=== PATIENT | male | born 1950 | race Caucasian/White ===

== ENCOUNTER → 2018-07-11 10:43 | Outpatient (CLI) | payer MEDICARE, OTHER, SELFPAY | DX: R52 Pain, unspecified (principal) ==

== ENCOUNTER → 2018-07-14 10:45 | Outpatient (CLI) | payer MEDICARE, OTHER, SELFPAY ==
--- NOTE | 2018-07-14 10:55 | RAD_ITS ---
STUDY: X-RAY - PELVIS REASON FOR EXAM: Male, 67 years old. Bilateral hip pain TECHNIQUE: Two views of the pelvis were obtained. COMPARISON: Prior study of April 20, 2013 FINDINGS: There is a non-specific bowel gas pattern. Normal visualized soft tissue structures. There are mild sclerotic changes of the left SI joint. Normal visualized bilateral superior and inferior pubic rami. Normal pubic symphysis. Normal ischial tuberosities. There are mild arthritic changes of the right hip. Status post total left hip replacement changes are noted. RAD/Pelvis 1 or 2 Views IMPRESSION: Status post total left hip replacement changes. Mild arthritic changes of the right hip. Mild degenerative changes of the left SI joint. There is no evidence of acute fracture or lytic or blastic osseous process. Electronically Signed: Chi Mcnair MD at 21:51 EDT , Service support ,
== END ==
DX: M16.0 Bilateral primary osteoarthritis of hip (principal)
CPT/HCPCS: 72170

== ENCOUNTER → 2018-10-28 06:21 | Outpatient (CLI) | payer MEDICARE, OTHER, SELFPAY ==
--- NOTE | 2018-10-28 06:32 | MRI_ITS ---
STUDY: MRI RIGHT HIP REASON FOR EXAM: Pain for 5 months, osteoarthritis. TECHNIQUE: Standardized fat and water weighted pulse sequences were obtained in all 3 orthogonal planes. COMPARISON: Radiograph 07/14/2018. FINDINGS: There is right hip arthrosis with chondral loss (proton density sagittal image 19), mild flattening of the superior femoral head (T1 coronal images 15, 16) and bone edema of the acetabulum and femoral head/neck (inversion recovery coronal images 15, 16). There is a joint effusion with synovitis (proton density sagittal images 16, 17). There is diffuse tear/degeneration of the superior and anterosuperior labrum (inversion recovery coronal images 13-18; proton density sagittal images 19-21). Normal gluteus minimus, medius and iliopsoas tendons and distal insertions. There is no trochanteric, iliopsoas or iliopectineal bursitis. Normal superior and inferior pubic rami. Normal pubic symphysis. Normal ischial tuberosity. Normal origin of the hamstring tendons. Normal visualized iliac wing, sacroiliac joint, and sacral ala. There is enlargement of the prostate (T1 coronal image 15). MRI/Lower Ext Joint Only (Routine) IMPRESSION: Advanced right hip arthrosis with associated bone edema and flattening of the right femoral head. Tear/degeneration of the labrum. Joint effusion with synovitis. Electronically Signed: Hasmukh Collazo MD at 9:10 EDT Tel , Service support ,
== END ==
PROVIDERS: Family Provider Family Medicine; PCP Family Medicine
DX: M16.11 Unilateral primary osteoarthritis, right hip (principal)
CPT/HCPCS: 73721

== ENCOUNTER → 2018-11-19 08:49 | Outpatient (CLI) | payer MEDICARE, OTHER, SELFPAY ==
--- NOTE | 2018-11-19 08:59 | BD_ITS ---
STUDY: DUAL ENERGY X-RAY ABSORPTIOMETRY / DXA REASON FOR EXAM: Male, 68 years old. Loss of height. TECHNIQUE: Bone Mineral Density (BMD) measurements of lumbar spine and right hip were obtained. COMPARISON: Comparison is made with prior study dated August 28, 2010. FINDINGS: Lumbar Spine (L1-L4): g/cm2 (1.488) / T-score (2.1) / Z-score (2.6) Findings are suggestive of normal bone density with a low fracture risk. Right Femur Total: g/cm2 (0.958) / T-score (-1.0) / Z-score (-0.3) Right Femoral Neck: g/cm2 (0.987) / T-score (-0.6) / Z-score (0.6) Left Forearm: g/cm2 (1.015) / T-score (0.3) / Z-score (1.1) The T-Scores on the most recent prior examination were: Lumbar Spine (L1-L4): There has been improvement of bone density since the previous examination. Right Femur Total: which represents a worsening of 8.1%. BD/Dexa Bone Density Study IMPRESSION: The patient is considered normal as outlined below according to World Phillip Organization (WHO) criteria with a low fracture risk. There has been worsening of bone density since the previous examination. Reference Information: The T-score is the number of standard deviations above or below the standard which is normal for young adults at their peak bone mineral density. The World Health Organization (WHO) interprets the T-scores as follows: Above -1 Normal bone density Between -1 and -2.5 Osteopenia Equal to / or below -2.5 Osteoporosis As a practical clinical guideline, osteopenia may be graded as follows: Mild -1 through -1.5 Moderate -1.6 through -2.0 Severe -2.1 through -2.4 The Z-score is the number of standard deviations above or below age-matched controls. A Z-score of less than -1.5 would be considered abnormal. References: 1. NIH Osteoporosis and Related Bone Diseases http://www.osteo.org 2. International Society for Clinical Densitometry http://www.iscd.org 3. National Osteoporosis Foundation http://www.nof.org Electronically Signed: Roby Herndon, at 10:44 EDT , Service support ,
== END ==
PROVIDERS: Family Provider Family Medicine; PCP Family Medicine
DX: M16.0 Bilateral primary osteoarthritis of hip (principal)
CPT/HCPCS: 77080

== ENCOUNTER → 2018-11-19 14:14 | Outpatient (CLI) | payer MEDICARE, OTHER, SELFPAY ==
--- NOTE | 2018-11-19 14:18 | RAD_ITS ---
STUDY: X-RAY CHEST REASON FOR EXAM: Male, 68 years old. Pre-op TECHNIQUE: Frontal and lateral views of the chest. COMPARISON: None. FINDINGS: There is hyperinflation of the lungs consistent with chronic obstructive lung disease (COPD). No infiltrates. No effusions. There is no demonstrated pleural abnormality. Normal size heart. Normal mediastinum and haydee. Normal visualized pulmonary arteries. Normal visualized aortic arch and descending thoracic aorta. There are diffuse degenerative changes of the visualized thoracic spine. Normal visualized ribs, clavicles, and shoulders. There is no demonstrated abnormality of the visualized soft tissue structures of the upper abdomen. RAD/Chest PA and Lateral IMPRESSION: There are findings consistent with COPD. There is no evidence of acute chest disease. Electronically Signed: Jr Howard MD at 17:00 EDT , Service support ,
== END ==
PROVIDERS: Family Provider Family Medicine; PCP Family Medicine; Referring Provider Family Medicine; Visit Provider Family Medicine
DX: Z01.818 Encounter for other preprocedural examination (principal); Z13.820 Encounter for screening for osteoporosis; M16.0 Bilateral primary osteoarthritis of hip; R29.890 Loss of height
CPT/HCPCS: 71046; 77080

== ENCOUNTER → 2019-01-26 15:34 | Outpatient (CLI) | payer MEDICARE, OTHER, SELFPAY ==
--- NOTE | 2019-01-26 15:42 | RAD_ITS ---
STUDY: X-RAY - PELVIS AND RIGHT HIP REASON FOR EXAM: Male, 68 years old. Postoperative hip pain TECHNIQUE: 3 views of the pelvis and hip. COMPARISON: 07/14/2018 FINDINGS: There is a non-specific bowel gas pattern. Normal visualized soft tissue structures. There is diffuse demineralization of the osseous structures. There is narrowing with cortical sclerosis and osteophyte formation of the sacroiliac joint consistent with degenerative osteoarthritic changes. Normal bilateral superior and inferior pubic rami. Normal pubic symphysis. Normal bilateral ischial tuberosities. Since the previous study, patient has undergone right hip replacement surgery. Components demonstrate anatomic alignment. No plain film evidence of hardware complication, failure, or acute traumatic antibody. Stable appearance of the replaced left hip joint RAD/HIP, UNI W/ Pelvis 2-3 Views IMPRESSION: Replaced right hip joint demonstrates anatomic alignment, no plain film evidence of hardware complication, failure, or acute traumatic abnormality SI joint arthrosis Replaced left hip joint free of complication No acute traumatic abnormality Electronically Signed: Federico Harris MD at 10:33 EST , Service support ,
== END ==
PROVIDERS: Family Provider Family Medicine; PCP Family Medicine
DX: M16.11 Unilateral primary osteoarthritis, right hip (principal)
CPT/HCPCS: 73502

== ENCOUNTER → 2020-01-01 09:52 | Outpatient (CLI) | payer MEDICARE, OTHER, SELFPAY ==
--- NOTE | 2020-01-01 10:00 | RAD_ITS ---
STUDY: X-RAY - PELVIS REASON FOR EXAM: Male, 69 years old. bilateral primary osteoarthritis of hip, hip re-surfacing follow up TECHNIQUE: One view of the pelvis was obtained. COMPARISON: None. FINDINGS: There is a non-specific bowel gas pattern. Normal visualized soft tissue structures. Normal bilateral iliac wings, sacroiliac joints and visualized sacrum. Normal visualized bilateral superior and inferior pubic rami. Normal pubic symphysis. Normal ischial tuberosities. Bilateral hip prostheses are identified in anatomic alignment and position. RAD/Pelvis 1 or 2 Views IMPRESSION: Stable appearing bilateral hip prostheses Electronically Signed: Kerwin Pearson MD at 21:23 EST , Service support ,
== END ==
PROVIDERS: PCP Family Medicine
DX: M16.0 Bilateral primary osteoarthritis of hip (principal)
CPT/HCPCS: 72170

== ENCOUNTER 2020-01-13 10:24 | Outpatient (RCR) | payer MEDICARE, OTHER, SELFPAY ==
--- NOTE | 2020-01-13 11:34 | HP.PTEVAL_ITS ---
Patient's Visit Information URIEL RICE is a 69 year old M referred to Physical Therapy by OBDULIA FINNEY with a diagnosis of B hip resurfacing. Date of Evaluation: 01/13/20 Physical Therapist: Parth Roldan, PT, ATC - Visit Plan Plan: No skilled PT necessary at this time. Discharge - Subjective Pt reports he had L hip resurfacing 9 years ago and R hip resurfacing 1 year ago. Pt notes he has been doing very well since both surgeries. Pt reports no pain in wither hip this date. No LE tingling or numbness in his LE's. Pt reports no daily limitations with functional activities that he would normally be performing. Pt notes he is her for a follow up evaluation on his hips to make rivera re they are progressing as expected. Pt reports he is not in pain at this time. - Objective Pain: 0/10. Neuro: B UE sensation is WNL to light touch. B patellar reflex= 2/3. MMT: B LE's are rated at 5/5 throughout. ROM: L hip flex= 120, abd= 50, add= 30. R hip flex= 110, abd= 50, add 30. Gait: Pt ambulates with no deviations this date - Goals Goal 1:: N/A - Rehabilitation Potential Physical Therapy Diagnosis: B hip resurfacing Rehabilitation Potential: Excellent - Anticipated Interventions Patient/Client Instruction: Educate patient on: Condition, Plan of Care For the Purpose of:: To improve self management Thank you for the opportunity to evaluate your patient. For Medicare and Medicare HMO plans, please review the plan of care and approve it. It will need to be FAXED BACK to us at [phone] for Medicare purposes. For Medicare only, by signing this I certify the plan of care. Please let me know if there are questions or concerns regarding this plan of c are. Physician Signature: Date:
== END 2020-01-13 19:00 | disposition home or self-care (01) ==
LOC: PT 10:24
PROVIDERS: PCP Family Medicine
DX: Z47.1 Aftercare following joint replacement surgery (principal); Z96.641 Presence of right artificial hip joint
CPT/HCPCS: 97161

== ENCOUNTER → 2020-01-20 09:08 | Outpatient (CLI) | payer SELFPAY | PROVIDERS: PCP Family Medicine; Referring Provider Family Medicine; Visit Provider Family Medicine | DX: Z01.818 Encounter for other preprocedural examination (principal) ==

== ENCOUNTER → 2020-11-30 09:03 | Outpatient (CLI) | payer MEDICARE, OTHER, SELFPAY ==
--- NOTE | 2020-11-30 09:07 | RAD_ITS ---
STUDY: X-RAY - PELVIS AND BILATERAL HIPS REASON FOR EXAM: Male, 70 years old. Pain. TECHNIQUE: AP view of the pelvis.? 2 views of the right hip, and 2 views of the left hip were obtained. COMPARISON: 01/01/2020. FINDINGS: There is a non-specific bowel gas pattern. Normal visualized soft tissue structures. Osteopenia. Stable mild arthrosis of both sacroiliac joints. Normal symphysis pubis. Stable bilateral hip arthroplasties with no complicating features. RAD/Hips B/L min 2 views w/ Pelvis IMPRESSION: Stable osteopenia with mild arthrosis of both sacroiliac joints. Stable uncomplicated bilateral hip prostheses. Electronically Signed: Ryan Lau MD at 10:21 EDT , Service support ,
== END ==
PROVIDERS: PCP Family Medicine
DX: M16.10 Unilateral primary osteoarthritis, unspecified hip (principal); M25.559 Pain in unspecified hip
CPT/HCPCS: 73521

== ENCOUNTER → 2021-05-10 10:43 | Outpatient (CLI) | payer MEDICARE, OTHER, SELFPAY ==
--- NOTE | 2021-05-10 10:51 | RAD_ITS ---
INDICATION: KNEE PAIN EXAMINATION/TECHNIQUE: X-RAY - RIGHT XR Knee Complete 4 Views or More 4 VIEWS COMPARISON: None. FINDINGS: No acute fracture or dislocation. Joint spaces are intact. [id number] tricompartment osteoarthritic changes. Soft tissues are unremarkable. No significant joint effusion. RAD/Knee 4 or More Views IMPRESSION: 1. No acute findings. 2. [id number] tricompartment osteoarthritis. Electronically Signed: Josue Holbrook, at 13:55 EDT ,
--- NOTE | 2021-05-10 10:51 | RAD_ITS ---
INDICATION: KNEE PAIN EXAMINATION/TECHNIQUE: X-RAY - LEFT XR Knee Complete 4 Views or More 4 VIEWS COMPARISON: None. FINDINGS: No acute fracture or dislocation. Mild tricompartment osteoarthritic changes. Joint spaces are otherwise intact. Soft tissues are unremarkable. No significant joint effusion. RAD/Knee 4 or More Views IMPRESSION: 1. No acute fracture or dislocation. 2. Mild tricompartment osteoarthritis. Electronically Signed: Josue Holbrook, at 13:56 EDT ,
== END ==
PROVIDERS: PCP Family Medicine
DX: M25.561 Pain in right knee (principal); M25.562 Pain in left knee
CPT/HCPCS: 73564

== ENCOUNTER → 2022-03-14 | Outpatient (CLI) | payer SELFPAY | END | disposition home or self-care (01) | PROVIDERS: PCP Family Medicine; Referring Provider Family Medicine; Visit Provider Family Medicine | DX: E34.8 Other specified endocrine disorders (principal) | CPT/HCPCS: 76499 ==

== ENCOUNTER → 2022-08-03 | Outpatient (CLI) | payer MEDICARE, OTHER, SELFPAY ==
--- NOTE | 2022-08-03 11:23 | RAD_ITS ---
INDICATION: SHOULDER PAIN EXAMINATION/TECHNIQUE: X-RAY - RIGHT XR Shoulder Min 2 Views 4 VIEWS COMPARISON: FINDINGS: BONES: No fracture demonstrated. Marked degenerative changes at the glenohumeral joint, mild at the acromioclavicular joint. JOINTS: No dislocation. SOFT TISSUES: Unremarkable. RAD/Shoulder min 2 Views IMPRESSION: No evidence of fracture. Degenerative changes. Electronically Signed: Rosetta Priest MD at 4:04 EDT ,
== END | disposition home or self-care (01) ==
LOC: MTRAD 11:21
PROVIDERS: PCP Family Medicine; Referring Provider Family Medicine; Visit Provider Family Medicine
DX: M25.511 Pain in right shoulder (principal)
CPT/HCPCS: 73030

== ENCOUNTER → 2023-04-09 | Outpatient (CLI) | payer MEDICARE, OTHER, SELFPAY ==
--- NOTE | 2023-04-09 10:15 | RAD_ITS ---
INDICATION: PRESENCE OF ARTIFICIAL HIP EXAMINATION/TECHNIQUE: X-RAY - XR Pelvis 1 or 2 Views COMPARISON: Prior study dated: 11/30/2020 FINDINGS: PELVIC BONES: No displaced fracture, destructive or sclerotic lesions. Note that overlapping bowel shadows may however obscure fine detail. Sacroiliac joints are unremarkable. No widening of the pubic symphysis. HIPS: Bilateral hip arthroplasty in stable alignment and position. No displaced fracture seen in this frontal view. SOFT TISSUES: No soft tissue swelling or gas. RAD/Pelvis 1 or 2 Views IMPRESSION: Bilateral hip arthroplasty unchanged. Electronically Signed: Abdirahman Duvall MD at 16:57 EST ,
--- OUTSIDE RECORDS SUMMARY | 2023-04-09 10:47 | XMS RPT_ITS | CCD ---
Author Name Unknown Address [address] [place] [address] Organization [facility] Care Team Providers Care Lcac Radar Operator/Navigator Name Role Phone Dr. Judson Alves Attending Unavaila ble Dr. Judson Alves Primary Care Unavaila ble Problems Problem Classification Problem Date Documented Date Episodic/Chronic Disorders of lipid metabolism (3 sources) Hyperlipidemia, unspecified; Translations: [Hyperlipidemia, unspecified] Onset: 03-26-2022 Chronic Essential hypertension (3 sources) Essential (primary) hypertension; Translations: [Essential (primary) hypertension] Onset: 03-26-2022 Chronic Other screening for suspected conditions (not mental disorders or infectious disease) (3 sources) Encounter for screening for cardiovascular disorders; Translations: [Encounter for screening for cardiovascular disorders] Onset: 03-26-2022 Episodic Results Test Name Value Interpretation Reference Range Facil ity Encounters Encounter Date Encounter Type Care Provider Facility Start: 03-26-[address] Judson Alves Facility:[id number] Payers Date Payer Category Payer Unknown [id number] Unknown [id number] Summary Purpose Family History No Family History Records Found Advance Directives No Advanced Directives Records Found Additional Source Comments (unrecognized sect ion and content) No Status Records Found INFORMATION SOURCE (unrecogn ized section and content) FOR RECORDS PERTAINING TO PATIENTS WHO ARE OR HAVE BEEN ENROLLED IN A CHEMICAL DEPENDENCY/SUBSTANCEABUSE PROGRAM, SOME INFORMATION MAY BE OMITTED. This clinical summary was aggregated from multiple sources. Caution should be exercised in using it in the provision of clinical care. This summary normalizes information from multiple sources, and as a consequence, information in this document may materially change the coding, format and clinical context of patient data. In addition, data may be omitted in some cases. CLINICAL DECISIONS SHOULD BE BASED ON THE PRIMARY CLINICAL RECORDS. [facility]. provides no warranty or guarantee of the accuracy or completeness of information in this document.
== END | disposition home or self-care (01) ==
LOC: MTRAD 10:10
PROVIDERS: PCP Family Medicine
DX: Z96.643 Presence of artificial hip joint, bilateral (principal)
CPT/HCPCS: 72170

== ENCOUNTER → 2023-07-16 | Outpatient (CLI) | payer MEDICARE, OTHER, SELFPAY ==
--- NOTE | 2023-07-16 10:45 | RAD_ITS ---
STUDY: X-RAY - RIGHT SHOULDER REASON FOR EXAM: Male, 72 years old. SHOULDER PAIN TECHNIQUE: 4 views of the right shoulder. COMPARISON: None. FINDINGS: There is moderate to severe glenohumeral arthrosis with joint space narrowing and marginal osteophyte formation. There is mild hypertrophic acromioclavicular arthrosis. Normal acromion. Normal humeral head and visualized proximal humerus. The soft tissue structures are unremarkable. There is no demonstrated fracture. Normal visualized pulmonary apex. RAD/Shoulder min 2 Views IMPRESSION: Moderate to severe glenohumeral arthrosis. Mild hypertrophic acromioclavicular arthrosis. No demonstrated fracture. Electronically Signed: Hira Villar MD at 14:25 EDT ,
== END | disposition home or self-care (01) ==
LOC: MTRAD 10:36
PROVIDERS: PCP Family Medicine; Referring Provider Family Medicine; Visit Provider Family Medicine
DX: M25.511 Pain in right shoulder (principal)
CPT/HCPCS: 73030

== ENCOUNTER → 2024-08-14 | Outpatient (CLI) | payer MEDICARE, OTHER, SELFPAY ==
--- NOTE | 2024-08-14 10:54 | RAD_ITS ---
EXAM: XR Right Shoulder Complete, 2 or More Views CLINICAL INDICATION: PAIN TECHNIQUE: Two or more views of the right shoulder. COMPARISON: No relevant prior studies available. FINDINGS: BONES/JOINTS: Moderate degenerative change of the acromioclavicular glenohumeral joints. No acute fracture. No dislocation. SOFT TISSUES: Unremarkable. RAD/Shoulder min 2 Views IMPRESSION: Degenerative changes as above. Reading Location: [id number]
== END | disposition home or self-care (01) ==
LOC: MTRAD 10:42
PROVIDERS: PCP Family Medicine; Referring Provider Orthopaedic Surgery Sports Medicine; Visit Provider Orthopaedic Surgery Sports Medicine
DX: M25.511 Pain in right shoulder (principal)
CPT/HCPCS: 73030